=== PATIENT | female | born 1990 | race Asian ===

== ENCOUNTER 2021-09-25 13:46 | Emergency (ER) | payer OTHER ==
[~2021-09-25] VITALS: Ht 172.7 cm; Wt 94.3 kg
[2021-09-25 14:24] LABS: PLATELET COUNT 168 K/uL (152-353)
[2021-09-25 14:32] LABS: POTASSIUM 3.5 mmol/L (3.6-5.2)
[2021-09-25 17:50] VITALS: BP 134/76; TEMP 97.8
== END 2021-09-25 17:50 | disposition home or self-care (01) ==
LOC: ED 13:46
PROVIDERS: Hospitalist
DX: O23.32 Infections of other parts of urinary tract in pregnancy, second trimester (principal); N39.0 Urinary tract infection, site not specified; Z3A.19 19 weeks gestation of pregnancy; R11.2 Nausea with vomiting, unspecified
CPT/HCPCS: 36415; 80053; 81000; 81025; 83690; 84702; 85027; 87077; 87086; 87088; 87186; 96360; 96365; 96375; 99284; J0696; J1885; J2270; J2405